=== PATIENT | male | born 1990 | race Caucasian/White ===

== ENCOUNTER 2021-05-04 03:02 | Emergency (ER) | payer SELFPAY ==
[~2021-05-04] VITALS: Ht 177.8 cm; Wt 72.6 kg
[2021-05-04] MEDS ORDERED: LIDOCAINE W/ EPINEPHRINE 1% 20ML VIAL ONE (03:56)
[2021-05-04] MEDS ORDERED: LIDOCAINE W/ EPINEPHRINE 1% 20ML VIAL SC ONE (04:00)
[2021-05-04] MEDS ORDERED: MORPHINE SULFATE INJECTION 2 MG/ML SYRG IM ONE (04:00)
[2021-05-04] MEDS ORDERED: TETANUS-DIPTH-ACEL PERTUSSIS 0.5ML SYR Tdap IM ONE (04:00)
[2021-05-04] MEDS ORDERED: LIDOCAINE 1%-Mpf/Epinephrine 1:200,000 ONE (04:01)
[2021-05-04] MEDS ORDERED: LIDOCAINE 1% HCL (LOCAL ANESTH.) INJ 20ML MDV ONE (05:54)
[2021-05-04 07:04] VITALS: BP 168/107
== END 2021-05-04 07:24 | disposition home or self-care (01) ==
LOC: ER 03:02 → EDSEX 03:02 → ER 07:24
DX: S61.412A Laceration without foreign body of left hand, initial encounter (principal); S61.411A Laceration without foreign body of right hand, initial encounter; S81.812A Laceration without foreign body, left lower leg, initial encounter; S81.811A Laceration without foreign body, right lower leg, initial encounter; W54.0XXA Bitten by dog, initial encounter; Y93.89 Activity, other specified; Y92.89 Other specified places as the place of occurrence of the external cause; Y99.8 Other external cause status
CPT/HCPCS: 12006; 73070; 73090; 73130; 90471; 90715; 96372; 99284; J2001; J2270

== ENCOUNTER 2021-05-06 14:21 | Emergency (ER) | payer SELFPAY ==
[~2021-05-06] VITALS: Ht 177.8 cm; Wt 72.6 kg
[2021-05-06] MEDS ORDERED: cefTRIAXone SOD 1,000 MG VL ONE (15:00)
[2021-05-06] MEDS ORDERED: ACETAMINOPHEN 500 MG TAB PO ONE (15:00)
[2021-05-06] MEDS ORDERED: cefTRIAXone SOD 1,000 MG VL IM ONE (15:00)
[2021-05-06 15:10] VITALS: BP 155/101
== END 2021-05-06 15:53 | disposition home or self-care (01) ==
LOC: ER 14:32
DX: S41.112D Laceration without foreign body of left upper arm, subsequent encounter (principal); X58.XXXD Exposure to other specified factors, subsequent encounter
CPT/HCPCS: 96372; 99283; J0696